=== PATIENT | female | born 1950 | race Caucasian/White ===

== ENCOUNTER 2022-01-17 07:38 | Outpatient (CLI) | payer OTHER, SELFPAY ==
--- NOTE | ~2022-01-17 | MR_ITS ---
EXAMINATION: MR lumbar spine wo con EXAM DATE: 01/17/2022 09:03 INDICATION: Other Abn Findings On Diag Imaging Of Central Nervous System. Progression of difficulty w alking and standing. TECHNIQUE: Multi-sequential, multiplanar MR images of the lumbar spine were obtained without contrast . Sagittal T1, T2, T2 fat saturation images. Axial T2 weighted images. There is no prior study for comparison. FINDINGS: There is severe disc disease at L2-3 and 3-4, moderate to severe at L5-S1. There is 7 mm an terolisthesis L4 on L5 without definite spondylolysis. The conus medullaris terminates at the L1/2 le yokasta and has normal signal intensity and morphology. Mild upper lumbar levocurvature. Mild loss of ve rtebral body heights L2-L5. There is 3 mm retrolisthesis L5 on S1. Paraspinal soft tissue is unremark able. Level by level evaluation: T12-L1: Disc does not extend beyond the endplate margin. Facet arthropathy: Mild. Neural foraminal stenosis: No stenosis. Central canal stenosis: No stenosis. L1-L2: There is a minimal diffuse disc bulge. Facet arthropathy: Mild to moderate. Neural foraminal stenosis: No stenosis. Central canal stenosis: No stenosis. L2-L3: There is a moderate diffuse disc bulge. Facet arthropathy: Moderate . Ligamentum flavum enlargement. Neural foraminal stenosis: Moderate to severe left, moderate right. Central canal stenosis: Moderate. L3-L4: There is a moderate diffuse disc bulge. Facet arthropathy: Moderate . Ligamentum flavum enlargement. Neural foraminal stenosis: Moderate right, mild to moderate left. Central canal stenosis: Mild to moderate. L4-L5: There is a large diffuse disc bulge. Facet arthropathy: Severe . Ligamentum flavum enlargement. Neural foraminal stenosis: Moderate to severe bilateral. Central canal stenosis: Moderate to severe. L5-S1: There is a mild to moderate diffuse disc bulge. Facet arthropathy: Moderate left, mild to moderate right. Neural foraminal stenosis: Mild to moderate left, mild right. Central canal stenosis: Mild. IMPRESSION: 1. Moderate to severe lumbar spondylosis as detailed above. Reviewed, dictated and finalized at location G.
--- NOTE | ~2022-01-17 | MR_ITS ---
EXAMINATION: MR cervical spine wo con EXAM DATE: 01/17/2022 09:03 INDICATION: Other Abn Findings On Diag Imaging Of Central Nervous System . Trouble walking and standi ng. TECHNIQUE: Multi-sequential, multiplanar MR images of the cervical spine were obtained without contra st. Axial T2, axial T2 MERGE sequence. Sagittal T1, T2, T2 fat saturation images also obtained. Th ere is no prior study for comparison. FINDINGS: There is 4 mm anterolisthesis C3 on C4 with disc bulge, moderate central canal stenosis an d cord compression with reactive edema. Patient may benefit from steroid treatment. There is also 4 m m anterolisthesis C7 on T1. There is moderate to severe disc disease at C5-6 and 6-7, moderate at the 2 levels above. Cervicomedullary junction is normal in appearance. There are no suspicious marrow si gnal abnormalities. Paraspinal soft tissue is unremarkable. Level by level evaluation: Study is limited due to patient motion. C2-C3: Disc does not extend beyond the endplate margin. Uncovertebral joint arthropathy: Mild. Facet joint arthropathy: None. Neural foraminal stenosis: No stenosis. Central canal stenosis: No stenosis. C3-C4: There is a moderate diffuse disc bulge. Cervical cord edema at this level. Uncovertebral joint arthropathy: Moderate to severe left, mild to moderate right. Facet joint arthropathy: Severe left, moderate to severe right. Neural foraminal stenosis: Severe left, moderate to severe right. Central canal stenosis: Moderate, central canal narrowed to 5 mm in mid sagittal AP dimension.. C4-C5: There is a mild diffuse disc bulge. Uncovertebral joint arthropathy: Severe right, mild left. Facet joint arthropathy: Severe right, mild to moderate left. Neural foraminal stenosis: Severe right, mild left. Central canal stenosis: No stenosis. C5-C6: There is a mild to moderate diffuse disc bulge. Uncovertebral joint arthropathy: Moderate right, mild to moderate left. Facet joint arthropathy: Moderate to severe right, mild to moderate left. Neural foraminal stenosis: Moderate right, mild to moderate left. Central canal stenosis: Mild. C6-C7: There is a minimal diffuse disc bulge. Uncovertebral joint arthropathy: Moderate to severe bilateral. Facet joint arthropathy: Moderate bilateral. Neural foraminal stenosis: Moderate to severe left, moderate right. Central canal stenosis: No stenosis. C7-T1: There is a mild to moderate diffuse disc bulge. Uncovertebral joint arthropathy: Moderate to severe bilateral. Facet joint arthropathy: Moderate to severe bilateral. Neural foraminal stenosis: Moderate to severe left, moderate right. Central canal stenosis: Mild. IMPRESSION: 1. Cord compression at C3-4 with reactive edema; recommend steroids and neurosurgical consult. 2. Significant multilevel neural foraminal stenosis as detailed above. 3. I called Micah Abdi MD's office at 01/19/2022 15:47 CDT, line is busy. I discussed cord comp ression, recommendation of steroids and neurosurgical consult with Micah Abdi MD at 01/20/20 15:55 CDT. Reviewed, dictated and finalized at location G. IMPRESSION: 1. Cord compression at C3-4 with reactive edema; recommend steroids and neuros urgical consult. 2. Significant multilevel neural foraminal stenosis as detailed above. 3. I called Micah Abdi MD's office at 01/19/2022 15:47 CDT, line is busy. I discussed cord compression, recommendation of steroids and neurosurgical con sult with Micah Abdi MD at 01/19/2022 15:55 CDT.
== END 2022-01-17 07:39 | disposition home or self-care (01) ==
PROVIDERS: Visit Provider Family Medicine
DX: R90.89 Other abnormal findings on diagnostic imaging of central nervous system (principal); M47.896 Other spondylosis, lumbar region
CPT/HCPCS: 72141; 72148